=== PATIENT | male | born 1980 | race Two or more races ===

== ENCOUNTER 2023-07-11 20:52 | Emergency (ER) | payer SELFPAY ==
[~2023-07-11] VITALS: Ht 170.2 cm; Wt 81.0 kg
[2023-07-11 21:12] VITALS: BP 101/64; PULSE 96; RESP 18; O2SAT 94
[2023-07-11] MEDS ORDERED: AZIT4SOL RIGHTEYE (22:30)
[2023-07-11] MEDS ORDERED: IBUP-1455 PO (22:30)
[2023-07-11] MEDS ORDERED: ACET300T58 PO (22:30)
[2023-07-11] MEDS ORDERED: HYDROcodone-ACET 5/325MG TAB PO ONE (22:45)
== END 2023-07-11 23:12 | disposition home or self-care (01) ==
LOC: ER 20:52
DX: T15.01XA Foreign body in cornea, right eye, initial encounter (principal); X58.XXXA Exposure to other specified factors, initial encounter; Y93.89 Activity, other specified; Y92.89 Other specified places as the place of occurrence of the external cause; Y99.8 Other external cause status
CPT/HCPCS: 65222